=== PATIENT | female | born 2005 ===

== ENCOUNTER 2025-01-03 12:56 | Emergency (ER) | payer SELFPAY ==
[2025-01-03 13:14] VITALS: BP 131/82; PULSE 65; RESP 20; TEMP 98.3
--- NOTE | 2025-01-03 13:16 | ED ---
Abdominal Pain HPI - General Source: patient Mode of arrival: ambulatory Limitations: no limitations - History of Present Illness Location: epigastric Radiation: none Severity scale (1-10): 8 Quality: sharp Consistency: constant Associated Symptoms: denies other symptoms <Chel Frankel - Last Filed: 01/06/25 06:51> <Jose Luis Cueto - Last Filed: 01/07/25 21:55> - General Chief Complaint: Abdominal Pain Stated Complaint: Abd pain - History of Present Illness Initial Comments: Patient is a 19-year-old female with no known past medical history presenting for sudden onset epigastric pain. She states that around 0400 this morning she woke up with sharp 10/10 epigastric pain without radiation. She has no associated symptoms but does report that this morning she had chest pain that is now better. Pain is currently 8/10. She denies trial of NSAIDs or other remedies. She reports occasional alcohol use including 1 shot last night. Denies fever/chills, nausea/vomiting, diarrhea, constipation, hematuria, melena/hematochezia. (Chel Frankel) - Related Data Allergies Allergy/AdvReac Type Severity Reaction Status Date / Time No Known Allergies Allergy Verified 01/03/25 13:14 Review of Systems ROS Other: All systems not noted in ROS Statement are negative. <Chel Frankel - Last Filed: 01/06/25 06:51> ROS Other: All systems not noted in ROS Statement are negative. <Jose Luis Cueto - Last Filed: 01/07/25 21:55> ROS Statement: Those systems with pertinent positive or pertinent negative responses have been documented in the HPI. Past Medical History Past Medical History: No Reported History Past Surgical History: No Surgical Hx Reported <Chel Frankel - Last Filed: 01/06/25 06:51> General Exam Limitations: no limitations General appearance: alert, in no apparent distress Head exam: Present: atraumatic Eye exam: Present: normal appearance Respiratory exam: Present: normal lung sounds bilaterally. Absent: respiratory distress, wheezes, rales, rhonchi, stridor Cardiovascular Exam: Present: regular rate, normal rhythm, normal heart sounds. Absent: systolic murmur, diastolic murmur GI/Abdominal exam: Present: soft, tenderness (Epigastric), normal bowel sounds. Absent: distended, guarding, rebound, rigid Extremities exam: Present: normal inspection, full ROM Neurological exam: Present: alert, oriented X3 Psychiatric exam: Present: normal affect, normal mood Skin exam: Present: warm, dry, intact, normal color <Chel Frankel - Last Filed: 01/06/25 06:51> Course Vital Signs 01/03/25 13:11 Temperature 98.3 F Pulse Rate 65 Respiratory 20 Rate Blood Pressure 131/82 O2 Sat by Pulse 99 Oximetry Medical Decision Making <Chel Frankel - Last Filed: 01/06/25 06:51> <Jose Luis Cueto - Last Filed: 01/07/25 21:55> - Medical Decision Making Was pt. sent in by a medical professional or institution (, PA, SOIL CONSERVATION TEACHER, urgent care, hospital, or senior care...) When possible be specific @ -No Did you speak to anyone other than the patient for history (EMS, parent, family, police, friend...)? What history was obtained from this source @ -No Did you review nursing and triage notes (agree or disagree)? Why? @ -I reviewed and agree with nursing and triage notes Were old charts reviewed (outside hosp., previous admission, EMS record, old EKG, old radiological studies, urgent care reports/EKG's, senior care records)? Report findings @ -No old charts were reviewed Differential Diagnosis? @ -Differential Abdominal Pain Women: Appendicitis, Cholecystitis, diverticulosis, ischemic bowel, pancreatitis, hepatitis, UTI, gastroenteritis, AAA, incarcerated hernia, bowel obstruction, constipation, inflammatory bowel, hepatitis, peptic ulcer disease, splenic infarction, perforated viscus, vulvitis, ovarian torsion, PID, kidney stone, placenta abruption, this is not meant to be an all-inclusive list EKG interpreted by me (3pts min.). @ -As above X-rays interpreted by me (1pt min.). @ -None done CT interpreted by me (1pt min.). @ -None done U/S interpreted by me (1pt. min.). @ -None done What testing was considered but not performed or refused? (CT, X-rays, U/S, labs)? Why? @ -None What meds were considered but not given or refused? Why? @ -None Did you discuss the management of the patient with other professionals (professionals i.e. , PA, SOIL CONSERVATION TEACHER, lab, RT, psych nurse, licensed master social worker, rd scientist, teacher, surface to air weapons officer, immigration case manager)? Give summary @ -No Was smoking cessation discussed for >3mins.? @ -No Was critical care preformed (if so, how long)? @ -No Were there social determinants of health that impacted care today? How? (Homelessness, low income, unemployed, alcoholism, drug addiction, transportation, low edu. Level, literacy, decrease access to med. care, intermediate, rehab)? @ -No Was there de-escalation of care discussed even if they declined (Discuss DNR or withdrawal of care, Hospice)? DNR status @ -No What co-morbidities impacted this encounter? (DM, HTN, Smoking, COPD, CAD, Cancer, CVA, ARF, Chemo, Hep., AIDS, mental health diagnosis, sleep apnea, morbid obesity)? @ -None Was patient admitted / discharged? Hospital course, mention meds given and route, prescriptions, significant lab abnormalities, going to OR and other pertinent info. @ -Patient is a 19-year-old female with no known past medical history presenting for sudden onset sharp epigastric pain. Vitals stable upon arrival. CBC, CMP, lipase, amylase, urine hCG, urinalysis obtained. UA unremarkable, urine HCG negative. Ultrasound and other labs still pending. Patient given Pepcid, Carafate, Maalox, and viscous lidocaine. Case was handed off to Dr. Zacarias at this time. Undiagnosed new problem with uncertain prognosis? @ -No Drug Therapy requiring intensive monitoring for toxicity (Heparin, Nitro, Insulin, Cardizem)? @ -No Were any procedures done? @ -No Diagnosis/symptom? @ -Abdominal pain Acute, or Chronic, or Acute on Chronic? @ -Acute Uncomplicated (without systemic symptoms) or Complicated (systemic symptoms)? @ - Side effects of treatment? @ -No Exacerbation, Progression, or Severe Exacerbation? @ -No Poses a threat to life or bodily function? How? (Chest pain, [place], [place], pneumonia, PE, COPD, DKA, ARF, appy, cholecystitis, CVA, Diverticulitis, Homicidal, Suicidal, threat to staff... and all critical care pts) @ -No (Chel Frankel) I personally saw the patient and performed the critical portion of the service. I discussed the patient care with the resident. I directed management, care planning and final disposition of the patient. This includes, but not limited to, review of all lab work, radiological studies, EKG's, consultations, vital signs, and nursing notes. EKG interpreted by me (3pts min.) @None done X-Rays interpreted by me (1 pt min.) @None CT interpreted by me ( 1pt min.) @None U/S interpreted by me (1 pt min.) @None Case initially seen by myself and the resident. Signed out to the [facility] emergency department physician at the end of our shift Dr. Zacarias for further workup. (Jose Luis Cueto) - Lab Data Lab Results 01/03/25 01/03/25 Range/Units 13:18 14:11 Urine Color Colorless Urine Appearance Clear (Clear) Urine pH 6.5 (5.0-8.0) Ur Specific [place] 1.014 (1.001-1.035) Urine Protein Negative (Negative) Urine Glucose (UA) Negative (Negative) Urine Ketones Negative (Negative) Urine Blood Negative (Negative) Urine Nitrite Negative (Negative) Urine Bilirubin Negative (Negative) Urine Urobilinogen <2.0 (<2.0) mg/dL Ur Leukocyte Esterase Negative (Negative) Urine HCG, Qual Not Detected (Not Detectd) Disposition <Chel Frankel - Last Filed: 01/06/25 06:51> <Jose Luis Cueto - Last Filed: 01/07/25 21:55> Clinical Impression: Abdominal pain Disposition: LEFT AGAINST MEDICAL ADVICE Referrals: None,Stated [Primary Care Provider] - 1-2 days
[2025-01-03 14:18] LABS: Appearance,Urine Clear (Clear); Bilirubin,Urine Negative (Negative); Blood,Urine Negative (Negative); Color,Urine Colorless; Glucose,Urine (UA) Negative (Negative); Ketones,Urine Negative (Negative); Leukocyte Esterase,Urine Negative (Negative); Nitrite,Urine Negative (Negative); PH, Urine 6.5 (5.0-8.0); Protein,Urine Negative (Negative); Specific Gravity,Urine 1.014 (1.001-1.035); Urobilinogen,Urine <2.0 mg/dL (<2.0)
[2025-01-03] MEDS ORDERED: SUCRALFATE 1 GM TAB PO STA (15:04)
[2025-01-03] MEDS ORDERED: MAG HYDROX/AL HYDROX/SIMETH 30 ML CUP PO STA (15:04)
[2025-01-03] MEDS ORDERED: FAMOTIDINE 20 MG TAB PO STA (15:04)
[2025-01-03] MEDS ORDERED: LIDOCAINE VISCOUS 2% 15 ML CUP PO ONE (15:04)
== END 2025-01-03 15:30 | disposition left against medical advice (07) ==
LOC: EC 12:56
DX: R10.13 Epigastric pain (principal); Z53.29 Procedure and treatment not carried out because of patient's decision for other reasons
CPT/HCPCS: 81003; 81025